=== PATIENT | male | born 1990 | race Two or more races ===

== ENCOUNTER 2018-10-10 14:26 | Emergency (ER) | payer OTHER ==
[~2018-10-10] VITALS: Ht 190.5 cm; Wt 104.9 kg
--- NOTE | 2018-10-10 16:00 | NUR ---
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
[2018-10-10 17:14] VITALS: BP 111/68
== END 2018-10-10 16:42 | disposition home or self-care (01) ==
LOC: FSED 14:26
DX: L24.9 Irritant contact dermatitis, unspecified cause (principal); F17.210 Nicotine dependence, cigarettes, uncomplicated
CPT/HCPCS: 82948; 99283